=== PATIENT | female | born 1995 | race Caucasian/White ===

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

== ENCOUNTER 2017-09-02 13:38 | Inpatient (IN) | payer OTHER ==
[2017-09-02 14:59] VITALS: BMI 21.5
--- NOTE | 2017-09-02 17:21 | HP ---
COWS - Scale Resting Pulse: 2= ID [id number] Sweatin= Chills/Flushing Restless Observation: 3= Extraneous Movement Pupil Size: 0= Normal to Room Light Bone or Joint Aches: 2= Severe Diffuse Aches Runny Nose/ Eye Tearin= Nasal Congestion GI Upset > 30mins: 1= Stomach Cramp Tremor Observation: 2= Slight Tremor Visible Yawning Observation: 0= None Anxiety or Irritability: 2=Irritable/Anxious Goose Flesh Skin: 0=Smooth Skin COWS Score: 14 Admission [facility] - HPI Chief Complaint: withdrawal sx Allergies/Adverse Reactions: Allergies Allergy/AdvReac Type Severity Reaction Status Date / Time No Known Allergies Allergy Unverified 09/02/17 16:19 History of Present Illness: 21 years old female with long history of opiate nicotine dependence has depression is admitted to detox Exam Limitations: No Limitations - Ebola screening Have you traveled outside of the country in the last 21 days: No (N) Have you had contact with anyone from an Ebola affected area: No Have you been sick,other than usual withdrawal symptoms: No Do you have a fever: No - Review of Systems Constitutional: Changes in sleep, Weight Stable EENT: reports: Blurred Vision (eye glasses) Respiratory: reports: No Symptoms reported Cardiac: reports: No Symptoms Reported GI: reports: Poor Fluid Intake, Abdominal cramping : reports: No Symptoms Reported Musculoskeletal: reports: Back Pain, Joint Pain, Muscle Pain, Neck Pain Integumentary: reports: Change in Color (both hands iv opiate) Neuro: reports: Tremors Endocrine: reports: No Symptoms Reported Hematology: reports: No Symptoms Reported Psychiatric: reports: Judgement Intact, Orientated x3, Anxious, Depressed Other Systems: Reviewed and Negative Patient History - Patient Medical History Hx Anemia: No Hx Asthma: No Hx Chronic Obstructive Pulmonary Disease (COPD): No Hx Cancer: No Hx Cardiac Disorders: No Hx Congestive Heart Failure: No Hx Hypertension: No Hx Hypercholesterolemia: No Hx Pacemaker: No HX Cerebrovascular Accident: No Hx Seizures: No Hx Dementia: No Hx Diabetes: No Hx Gastrointestinal Disorders: No Hx Liver Disease: No Hx Genitourinary Disorders: No Hx Sexually Transmitted Disorders: No Hx Renal Disease (ESRD): No Hx Thyroid Disease: No Hx Human Immunodeficiency Virus (HIV): No Hx Hepatitis C: No Hx Depression: Yes Hx Suicide Attempt: No Hx Bipolar Disorder: No Hx Schizophrenia: No - Patient Surgical History Past Surgical History: No - PPD History Previous Implant?: Yes Documented Results: Negative w/o proof Implanted On Prior [facility] Admission?: No PPD to be Administered?: Yes - Reproductive History Patient is a Female of Child Bearing Age (11 -55 yrs old): Yes Last Menstrual Period: 08/13/17 Patient : No - Smoking Cessation Smoking history: Current every day smoker Have you smoked in the past 12 months: Yes Aproximately how many cigarettes per day: 20 Cigars Per Day: 0 Hx Chewing Tobacco Use: No Initiated information on smoking cessation: Yes 'Breaking Loose' booklet given: 09/02/17 - Substance & Tx. History Hx Alcohol Use: No Hx Substance Use: Yes Substance Use Type: Marijuana, Opiates Hx Substance Use Treatment: Yes (01/2017 [facility]) - Substances Abused Heroin Route: Injection Frequency: Daily Amount used: 30 bags Age of first use: 20 Date of Last Use: 09/01/17 Marijuana/Hashish Route: Smoking Frequency: 1-2 times per week Amount used: 1-2 grams Age of first use: 16 Date of Last Use: 08/26/17 Family Disease History - Family Disease History Family History: Unremarkable Admission Physical Exam BHS - Vital Signs Vital Signs: Vital Signs - 24 hr 09/02/17 14:57 Temperature 96.2 F L Pulse Rate 102 H Respiratory 19 Rate Blood Pressure 119/77 - Physical General Appearance: Yes: Appropriately Dressed, Mild Distress, Thin, Tremorous, Irritable, Sweating, Anxious HEENTM: Yes: Hearing grossly Normal, Normal ENT Inspection, Normocephalic, Normal Voice Respiratory: Yes: Chest Non-Tender, Lungs Clear, Normal Breath Sounds, No Respiratory Distress, No Accessory Muscle Use Neck: Yes: Supple, Trachea in good position Breast: Yes: Breasts Symetrical Cardiology: Yes: Regular Rhythm, S1, S2, Tachycardia Abdominal: Yes: Normal Bowel Sounds, Non Tender, Soft Genitourinary: Yes: Within Normal Limits Back: Yes: Normal Inspection Musculoskeletal: Yes: full range of Motion, Gait Steady, Back pain, Muscle Pain Extremities: Yes: Normal Range of Motion, Non-Tender, Tremors, Other (both hands iv opiate) Neurological: Yes: Fully Oriented, Alert, Motor Strength 5/5, Normal Response, Depressed Affect Integumentary: Yes: Warm, Track Fowler Lymphatic: Yes: Within Normal Limits - Diagnostic (1) Opioid dependence with withdrawal Current Visit: Yes Status: Acute (2) Nicotine dependence Current Visit: Yes Status: Acute Qualifiers: Nicotine product type: cigarettes Substance use status: in withdrawal Qualified Code(s): F17.213 - Nicotine dependence, cigarettes, with withdrawal (3) Depression (emotion) Current Visit: Yes Status: Suspected Qualifiers: Depression Type: dysthymia Qualified Code(s): F34.1 - Dysthymic disorder Cleared for Admission [facility] - Detox or Rehab [facility] Level of Care: Medically Managed Detox Regimen/Protocol: Methadone [facility] Breath Alcohol Content Breath Alcohol Content: 0 Urine Pregancy Test - Result Urine Test Results: Negative- NO Line Present Urine Drug Screen - Results Drug Screen Negative: No Urine Drug Screen Results: THC-Marijuana, OPI-Opiates
[2017-09-02] MEDS ORDERED: MAGNESIUM CITRATE 300 ML BOTTLE PO PRN (17:24)
[2017-09-02] MEDS ORDERED: MAG HYDROX/AL HYDROX/SIMETH 30 ML UNIT-DOSE CUP PO PRN (17:24)
[2017-09-02] MEDS ORDERED: MAGNESIUM HYDROX 2400MG/30ML ORAL SUSPENSION 30 ML CUP PO PRN (17:24)
[2017-09-02] MEDS ORDERED: P-EPHED 60MG/TRIPROLIDI 2.5MG TABLET PO PRN (17:24)
[2017-09-02] MEDS ORDERED: guaiFENesin/D-METHORPHAN HB 10 ML UNIT-DOSE CUPS PO PRN (17:24)
[2017-09-02] MEDS ORDERED: MENTHOL/PHENOL 1 EACH UD MM PRN (17:24)
[2017-09-02] MEDS ORDERED: LOPERAMIDE HCL 2 MG CAPSULE PO PRN (17:24)
[2017-09-02] MEDS ORDERED: IBUPROFEN 400 MG TABLET (FP) PO PRN (17:24)
[2017-09-02] MEDS ORDERED: ACETAMINOPHEN 325 MG TABLET (FP) PO PRN (17:24)
[2017-09-02] MEDS ORDERED: METHADONE HCL 10 MG TABLET (FOR DETOX USE ONLY) PO ONE ×2 (18:15→23:00)
[2017-09-02] MEDS: diazePAM 5 MG TABLET PO PRN (19:23)
[2017-09-02] MEDS: THIAMINE HCL 100 MG TABLET (FP) PO SCH (22:43)
[2017-09-03 01:28] LABS: URINE APPEARANCE CLOUDY; URINE BILIRUBIN NEGATIVE (NEGATIVE); URINE BLOOD NEGATIVE (NEGATIVE); URINE COLOR YELLOW; URINE GLUCOSE (UA) NEGATIVE (NEGATIVE); URINE KETONE NEGATIVE (NEGATIVE); URINE NITRITE NEGATIVE (NEGATIVE); URINE PROTEIN NEGATIVE (NEGATIVE); URINE UROBILINOGEN NEGATIVE mg/dL (0.2-1.0)
[2017-09-03 09:35] LABS: URINE LEUK ESTERASE 3+ (NEGATIVE)
[2017-09-03 09:46] LABS: MCH 25.7 pg (25.7-33.7); MCHC 32.3 g/dl (32.0-36.0); MEAN CELL VOLUME 79.7 fl (80-96); MEAN PLT VOLUME 8.5 fl (7.5-11.1); PLATELET COUNT 360 K/MM3 (134-434); RDW 16.5 % (11.6-15.6); WHITE BLOOD COUNT 5.8 K/mm3 (4.0-10.0)
--- NOTE | 2017-09-03 09:53 | PN ---
BHS COWS - Scale Resting Pulse: 0= CT 80 or Below Sweatin=Flushed/Facial Moisture Restless Observation: 1= Difficult to Sit Still Pupil Size: 0= Normal to Room Light Bone or Joint Aches: 2= Severe Diffuse Aches Runny Nose/ Eye Tearin= Runny Nose/Eyes GI Upset > 30mins: 0= None Tremor Observation of Outstretched Hands: 2= Slight Tremor Visible Yawning Observation: 2= >3x During Session Anxiety or Irritability: 2=Irritable/Anxious Goose Flesh Skin: 3=Piloerection COWS Score: 16 BHS Progress Note (SOAP) Subjective: chills sweats restless agitation interrupted sleep Objective: 09/03/17 09:52 Vital Signs Temperature 96.1 F L 09/03/17 06:41 Pulse Rate 80 09/03/17 06:41 Respiratory Rate 18 09/03/17 06:41 Blood Pressure 111/68 09/03/17 06:41 O2 Sat by Pulse Oximetry (%) Laboratory Tests 09/02/17 22:35 Urine Color Yellow Urine Appearance Cloudy Urine pH 7.0 Ur Specific [place] 1.005 Urine Protein Negative Urine Glucose (UA) Negative Urine Ketones Negative Urine Blood Negative Urine Nitrite Negative Urine Bilirubin Negative Urine Urobilinogen Negative Ur Leukocyte Esterase 3+ H labs pending aaox3 ambulating no acute distress Assessment: 09/03/17 09:52 withdrawal sx Plan: continue detox increase fluids f/u pending labs
[2017-09-03] MEDS ORDERED: METHADONE HCL 10 MG TABLET (FOR DETOX USE ONLY) PO ONE (10:00)
[2017-09-03] MEDS: NICOTINE 21 MG/24 HOURS TOPICAL PATCH TD SCH (10:44)
[2017-09-03] MEDS: PRENATAL VITAMINS W/ FOLIC ACID TABLET (FP) PO SCH (10:45)
[2017-09-03 10:47] LABS: ALBUMIN 3.5 g/dl (3.4-5.0); ALK PHOS 86 U/L (45-117); ANION GAP 8 (8-16); BILIRUBIN,TOTAL 0.5 mg/dL (0.2-1.0); CALCIUM 9.3 mg/dL (8.5-10.1); CO2 27 mmol/L (21-32); CREATININE 0.7 mg/dL (0.55-1.02); GLUCOSE,RANDOM 80 mg/dL (74-106); SGOT/AST 12 U/L (15-37); SGPT/ALT 22 U/L (12-78); TOT PROT 7.3 g/dl (6.4-8.2)
[2017-09-03] MEDS: NICOTINE POLACRILEX 4 MG GUM BC PRN ×2 (12:52→18:00)
--- NOTE | 2017-09-03 13:11 | EKG ---
Test Reason : Blood Pressure : / mmHG Vent. Rate : 096 BPM Atrial Rate : 096 BPM P-R Int : 132 ms QRS Dur : 084 ms QT Int : 332 ms P-R-T Axes : 051 086 053 degrees QTc Int : 419 ms NORMAL SINUS RHYTHM PROMINENT R WAVES IN V1-V2 V1, MAY BE RELATED TO [place] OR POSITIONAL FACTORS, CANNOT EXCLUDE RIGHT VENTRICULAR PROMINENCE OR TRUE POSTERIOR WALL NM INDETERMINATE AGE WHEN COMPARED WITH ECG OF 13-DEC-2016 21:11, CHANGES MENTIONED ABOVE SUGGEST REPEAT EKG Confirmed by CHANTAL SIMEON MD ([id number]) on 09/03/2017 1:11:00 PM Referred By: Familia Oden Confirmed By:CHANTAL SIMEON MD
[2017-09-03 14:04] LABS: URINE RBC 0-2 /hpf (0-3)
[2017-09-03 14:05] LABS: URINE BACTERIA MANY /hpf (NEGATIVE)
--- NOTE | 2017-09-03 18:43 | CONSULT ---
[facility] Psychiatric Consult - Data Date of interview: 09/03/17 Admission source: [facility] Identifying data: First admission to [facility] for this 21 y/o female seeking detox treatment on for heroin and marihuana dependence.Patient is single without chidren,domiciled and employed. Substance Abuse History: Confirmed by patient in this interview. Smoking history: Current every day smoker. Have you smoked in the past 12 months: Yes. Aproximately how many cigarettes per day: 20. Cigars Per Day: 0. Hx Chewing Tobacco Use: No. Initiated information on smoking cessation: Yes. 'Breaking Loose' booklet given: 09/02/17. - Substance & Tx. History. Hx Alcohol Use: No. Hx Substance Use: Yes. Substance Use Type: Marijuana, Opiates. Hx Substance Use Treatment: Yes (01/2017 [facility]). - Substances Abused. Heroin. Route: Injection. Frequency: Daily. Amount used: 30 bags. Age of first use: 20. Date of Last Use: 09/01/17. Marijuana/Hashish. Route: Smoking. Frequency: 1-2 times per week. Amount used: 1-2 grams. Age of first use: 16. Date of Last Use: 08/26/17 Medical History: Patient endorses good general health. Psychiatric History: Patient denies. Physical/Sexual Abuse/Trauma History: No reported history of abuse. Additional Comment: Urine Drug Screen Results: THC-Marijuana, OPI-Opiates.Noted. Mental Status Exam - Mental Status Exam Alert and Oriented to: Time, Place, Person Cognitive Function: Good Patient Appearance: Well Groomed Mood: Hopeful, Euthymic Affect: Appropriate, Normal Range Patient Behavior: Fatigued, Appropriate, Cooperative Speech Pattern: Clear Voice Loudness: Normal Thought Process: Intact, Goal Oriented Thought Disorder: Not Present Hallucinations: Denies Suicidal Ideation: Denies Homicidal Ideation: Denies Insight/Judgement: Poor Sleep: Poorly Appetite: Good Muscle strength/Tone: Normal Gait/Station: Normal Psychiatric Findings - Problem List ([place] 1, 2,3) (1) Opioid dependence with withdrawal Current Visit: Yes Status: Acute (2) Cannabis abuse Current Visit: Yes Status: Acute (3) Nicotine dependence Current Visit: Yes Status: Acute Qualifiers: Nicotine product type: cigarettes Substance use status: in withdrawal Qualified Code(s): F17.213 - Nicotine dependence, cigarettes, with withdrawal (4) Insomnia Current Visit: Yes Status: Acute - Initial Treatment Plan Initial Treatment Plan: Psychoeducation.Detoxification.Insomnia is addressed with benadryl 50 mg po hs prn.Side effects/benefits are discussed with patient.She agrees with this careplan.Observation.
[2017-09-03] MEDS: THIAMINE HCL 100 MG TABLET (FP) PO SCH (22:37)
[2017-09-03] MEDS: diazePAM 5 MG TABLET PO PRN (22:37)
--- NOTE | 2017-09-04 08:43 | PN ---
S COWS - Scale Resting Pulse: 0= ND 80 or Below Sweatin= No chills or Flushing Restless Observation: 0= Sits Still Pupil Size: 0= Normal to Room Light Bone or Joint Aches: 0= None Runny Nose/ Eye Tearin= None GI Upset > 30mins: 2= Nausea/Diarrhea Tremor Observation of Outstretched Hands: 0= None Yawning Observation: 0= None Anxiety or Irritability: 1=Feels Anxious/Irritable Goose Flesh Skin: 0=Smooth Skin COWS Score: 3 S Progress Note (SOAP) Subjective: NAUSEA, SWEATS, INAXIETY, INTERRUPTED SLEEP, BUT MUCH IMPORVED WISHES TO BE DISCHARGED TOMORROW FOR THANSGIVING Objective: 09/04/17 08:42 Vital Signs - 24 hr 09/03/17 09/03/17 09/03/17 10:06 14:17 18:59 Temperature 97.9 F 97.7 F 98.1 F Pulse Rate 90 93 H 79 Respiratory 18 16 18 Rate Blood Pressure 127/56 128/64 101/54 09/03/17 09/04/17 09/04/17 22:00 00:30 03:30 Temperature 98.2 F Pulse Rate 75 Respiratory 18 18 18 Rate Blood Pressure 108/62 09/04/17 06:38 Temperature 98.1 F Pulse Rate 62 Respiratory 16 Rate Blood Pressure 94/53 Laboratory Tests 09/02/17 09/02/17 09/03/17 07:00 22:35 07:00 WBC 5.8 RBC 4.72 Hgb 12.1 Hct 37.6 MCV 79.7 L MCH 25.7 D MCHC 32.3 RDW 16.5 H D Plt Count 360 MPV 8.5 Sodium Potassium Chloride Carbon Dioxide Anion Gap BUN Creatinine Creat Clearance w eGFR Random Glucose Calcium Total Bilirubin AST ALT Alkaline Phosphatase Total Protein Albumin Urine Color Yellow Urine Appearance Cloudy Urine pH 7.0 Ur Specific [place] 1.005 Urine Protein Negative Urine Glucose (UA) Negative Urine Ketones Negative Urine Blood Negative Urine Nitrite Negative Urine Bilirubin Negative Urine Urobilinogen Negative Ur Leukocyte Esterase 3+ H Urine RBC 0-2 Urine WBC 10-20 Ur Epithelial Cells Few Urine Bacteria Many RPR Titer Hepatitis C Antibody <0.1 09/03/17 09/03/17 07:00 07:00 WBC RBC Hgb Hct MCV MCH MCHC RDW Plt Count MPV Sodium 139 Potassium 4.4 Chloride 104 Carbon Dioxide 27 Anion Gap 8 BUN 8 D Creatinine 0.7 Creat Clearance w eGFR > 60 Random Glucose 80 D Calcium 9.3 Total Bilirubin 0.5 D AST 12 L ALT 22 D Alkaline Phosphatase 86 Total Protein 7.3 Albumin 3.5 Urine Color Urine Appearance Urine pH Ur Specific [place] Urine Protein Urine Glucose (UA) Urine Ketones Urine Blood Urine Nitrite Urine Bilirubin Urine Urobilinogen Ur Leukocyte Esterase Urine RBC Urine WBC Ur Epithelial Cells Urine Bacteria RPR Titer Nonreactive Hepatitis C Antibody Assessment: 09/04/17 08:42 MILD WITHDRAWAL, MEDICALLY STABLE Plan: CONT DETOX, WILL ACCELERATE SCHEDULE FOR D/C IN am, FLUIDS,COUNSELED RE NEED FOR mat WITH [facility] AT [place] WHERE SHE WILL BE FOLLOWING UP.
[2017-09-04] MEDS ORDERED: METHADONE HCL 10 MG TABLET (FOR DETOX USE ONLY) PO ONE (10:00)
[2017-09-04] MEDS ORDERED: METHADONE HCL 5 MG TABLET (FOR DETOX USE ONLY) PO ONE (10:00)
[2017-09-04] MEDS: PRENATAL VITAMINS W/ FOLIC ACID TABLET (FP) PO SCH (10:38)
[2017-09-04] MEDS: NICOTINE 21 MG/24 HOURS TOPICAL PATCH TD SCH (10:39)
[2017-09-04] MEDS: diazePAM 5 MG TABLET PO PRN (13:00)
[2017-09-04] MEDS: NICOTINE POLACRILEX 4 MG GUM BC PRN (13:01)
[2017-09-04] MEDS: THIAMINE HCL 100 MG TABLET (FP) PO SCH (22:59)
[2017-09-05] MEDS ORDERED: METHADONE HCL 5 MG TABLET (FOR DETOX USE ONLY) PO ONE (06:00)
--- NOTE | 2017-09-05 08:49 | DS ---
[facility] Detox Discharge Summary Admission Date: 09/02/17 Discharge Date: 09/05/17 - History Present History: Cannabis Dependence, Opioid Dependence - Physical Exam Results Vital Signs: Vital Signs Temperature 97.7 F 09/05/17 06:00 Pulse Rate 68 09/05/17 06:00 Respiratory Rate 18 09/05/17 06:00 Blood Pressure 114/56 09/05/17 06:00 O2 Sat by Pulse Oximetry (%) - Treatment Hospital Course: Detox Protocol Followed, Detoxed Safely, Responded well, Discharged Condition Good, Rehab Referral Accepted - Medication Discharge Medications: Ambulatory Orders NK [No Known Home Medication] 12/13/16 - Diagnosis (1) Nicotine dependence Current Visit: Yes Status: Chronic Qualifiers: Nicotine product type: cigarettes Substance use status: uncomplicated Qualified Code(s): F17.210 - Nicotine dependence, cigarettes, uncomplicated (2) Opioid dependence with withdrawal Current Visit: Yes Status: Chronic - AMA Did Patient Leave Against Medical Advice: No (going home pt is being p/u by dad)
[2017-09-05 10:00] VITALS: BP 114/58; PULSE 74; TEMP 97.9
[2017-09-05] MEDS ORDERED: METHADONE HCL 10 MG TABLET (FOR DETOX USE ONLY) PO ONE (10:00)
[2017-09-06] MEDS ORDERED: METHADONE HCL 5 MG TABLET (FOR DETOX USE ONLY) PO ONE (06:00)
== END 2017-09-05 10:07 | disposition home or self-care (01) | DRG 773 ==
LOC: YASAS 13:38 → Y6N 16:50
PROVIDERS: ADMIT Internal Medicine; ATTEND Internal Medicine
PROC: HZ2ZZZZ Detoxification Services for Substance Abuse Treatment (ICD-10-PCS; principal; 2017-09-02)
DX: F11.23 Opioid dependence with withdrawal (principal); F12.10 Cannabis abuse, uncomplicated; F17.210 Nicotine dependence, cigarettes, uncomplicated; F34.1 Dysthymic disorder; G47.00 Insomnia, unspecified
CPT/HCPCS: 36415; 80053; 81003; 81015; 85027; 86593; 86803; 93005; 93010

== ENCOUNTER 2019-01-21 13:49 | Inpatient (IN) | payer OTHER ==
[2019-01-21 16:30] VITALS: BMI 19.9
--- NOTE | 2019-01-21 17:06 | HP ---
COWS - Scale Resting Pulse: 1= [place] 81-100 Sweatin= Chills/Flushing Restless Observation: 1= Difficult to Sit Still Pupil Size: 1= Pupils >than Normal Bone or Joint Aches: 1= Mild Discomfort Runny Nose/ Eye Tearin= Runny Nose/Eyes GI Upset > 30mins: 2= Nausea/Diarrhea Tremor Observation: 2= Slight Tremor Visible Yawning Observation: 1= 1-2x During Session Anxiety or Irritability: 1=Feels Anxious/Irritable Goose Flesh Skin: 0=Smooth Skin COWS Score: 13 CIWA Score - Admission Criteria OASAS Guidelines: Admission for Medically Managed Detox: Requires at least one of the followin. CIWA greater than 12 2. Seizures within the past 24 hours 3. Delirium tremens within the past 24 hours 4. Hallucinations within the past 24 hours 5. Acute intervention needed for co occurring medical disorder 6. Acute intervention needed for co occurring psychiatric disorder 7. Severe withdrawal that cannot be handled at a lower level of care (continued vomiting, continued diarrhea, abnormal vital signs) requiring intravenous medication and/or fluids 8. Admission ROS [facility] Chief Complaint: here for heroin and xanax 23 yo with 3 year h/o heroin use- after she got started with a boyfriend. Was here 2 years ago for detox- did well for 2 months and then relapsed to using IV heroin. Says she was kicked out of her mom's house b/c of drug use and was fired from her job for being late. Says she now motivated to stop using heroin. Heroin- 1 bundle a day: IV, last use 7 am- about 10 hours ago Xanax- buys 4 mg/day utox- pos cocaine and heroin and BZO Pt wishes to leave on 01/24 in 3 days to attend her mother's : given a lower dose methadone detox protocol- pt agreeable to this- may need to give more methadone- pt using 10 bags of methadone a day Pt agrees to start at our methadone program [facility] Allergies/Adverse Reactions: Allergies Allergy/AdvReac Type Severity Reaction Status Date / Time No Known Allergies Allergy Unverified 01/21/19 16:22 - Ebola screening Have you traveled outside of the country in the last 21 days: No (N) Have you had contact with anyone from an Ebola affected area: No Do you have a fever: No Patient History - Patient Medical History Hx Anemia: No Hx Asthma: No Hx Chronic Obstructive Pulmonary Disease (COPD): No Hx Cancer: No Hx Cardiac Disorders: No Hx Congestive Heart Failure: No Hx Hypertension: No Hx Hypercholesterolemia: No Hx Pacemaker: No HX Cerebrovascular Accident: No Hx Seizures: No Hx Dementia: No Hx Diabetes: No Hx Gastrointestinal Disorders: No Hx Liver Disease: No Hx Genitourinary Disorders: No Hx Sexually Transmitted Disorders: No Hx Renal Disease (ESRD): No Hx Thyroid Disease: No Hx Human Immunodeficiency Virus (HIV): No Hx Hepatitis C: No Hx Depression: Yes Hx Suicide Attempt: No Hx Bipolar Disorder: No Hx Schizophrenia: No - Patient Surgical History Past Surgical History: No - PPD History Date: 09/04/17 - Reproductive History Last Menstrual Period: 08/13/17 - Smoking Cessation Smoking history: Current every day smoker Have you smoked in the past 12 months: Yes Aproximately how many cigarettes per day: 20 Cigars Per Day: 0 Hx Chewing Tobacco Use: No Initiated information on smoking cessation: Yes 'Breaking Loose' booklet given: 01/21/19 - Substance & Tx. History Hx Alcohol Use: No Hx Substance Use: Yes Substance Use Type: Heroin, Opiates, Tranquilizers - Substances abused Heroin Substance route: Injection Frequency: Daily Amount used: 1 bundle Age of first use: 20 Date of last use: 01/21/19 Alprazolam (Xanax) Substance route: Oral Frequency: 1-2 times per week Amount used: 2 or 3 of 2 mg. Age of first use: 20 Date of last use: 01/20/19 Family Disease History - Family Disease History Family Disease History: Other: Father (smokes crack) Admission Physical Exam BHS - Vital Signs Vital Signs: Vital Signs - 24 hr 01/21/19 16:24 Temperature 97.6 F Pulse Rate 109 H Respiratory 14 Rate Blood Pressure 102/72 - Physical General Appearance: Yes: Within Normal Limits HEENTM: Yes: Within Normal Limits Respiratory: Yes: Within Normal Limits Neck: Yes: Within Normal Limits Cardiology: Yes: Within Normal Limits Abdominal: Yes: Within Normal Limits Genitourinary: Yes: Within Normal Limits Back: Yes: Within Normal Limits Musculoskeletal: Yes: Within Normal Limits Extremities: Yes: Within Normal Limits Neurological: Yes: Within Normal Limits Integumentary: Yes: Within Normal Limits Lymphatic: Yes: Within Normal Limits - Diagnostic (1) Cannabis abuse Current Visit: No Status: Acute (2) Heroin abuse Current Visit: No Status: Acute (3) Nicotine dependence Current Visit: No Status: Chronic Qualifiers: Nicotine product type: cigarettes Substance use status: uncomplicated Qualified Code(s): F17.210 - Nicotine dependence, cigarettes, uncomplicated (4) Opioid dependence with withdrawal Current Visit: No Status: Chronic Breathalyzer - Breathalyzer Breathalyzer: 0 POC Urine test - Test device test lot number: [id number] Expiration date: 06/13/20 - Control test control: Yes - Result Urine Test Results: Negative - NO line present Urine Drug Screen - Test Device Lot number: [id number] Expiration date: 01/11/20 - Control Is test valid?: Yes - Results Drug screen NEGATIVE: No Urine drug screen results: MET-Methamphetamine, AMP-Amphetamines, BAR- Barbiturates, MDMA-Ecstasy, BUP-Suboxone Inpatient Rehab Admission - Rehab Decision to Admit Inpatient rehab admission?: No
[2019-01-21] MEDS ORDERED: MAGNESIUM HYDROX 2400MG/30ML ORAL SUSPENSION 30 ML CUP PO PRN (17:11)
[2019-01-21] MEDS ORDERED: ONDANSETRON *ODT* 4 MG TABLET SL PRN (17:11)
[2019-01-21] MEDS ORDERED: BISMUTH SUBSALICYLATE 524 MG/30 ML UD PO PRN (17:11)
[2019-01-21] MEDS ORDERED: ACETAMINOPHEN 325 MG TABLET (FP) PO PRN ×2 (17:11)
[2019-01-21] MEDS ORDERED: MAGNESIUM CITRATE 300 ML BOTTLE PO PRN (17:11)
[2019-01-21] MEDS ORDERED: MELATONIN 5 MG TABLETS PO PRN (17:11)
[2019-01-21] MEDS ORDERED: hydrOXYzine PAMOATE 25 MG CAPSULE (FP) PO PRN (17:11)
[2019-01-21] MEDS ORDERED: METHOCARBAMOL 500 MG TABLET PO PRN (17:11)
[2019-01-21] MEDS ORDERED: MAG HYDROX/AL HYDROX/SIMETH 30 ML UNIT-DOSE CUP PO PRN (17:11)
[2019-01-21] MEDS ORDERED: IBUPROFEN 400 MG TABLET (FP) PO PRN (17:11)
[2019-01-21] MEDS ORDERED: MENTHOL/PHENOL 1 EACH UD MM PRN (17:11)
[2019-01-21] MEDS ORDERED: cloNIDine HCL 0.1 MG TABLET PO PRN (17:13)
[2019-01-21] MEDS: THIAMINE HCL 100 MG TABLET (FP) PO SCH (22:27)
[2019-01-21] MEDS: clonazePAM 0.5 MG TABLET PO PRN (22:29)
[2019-01-21] MEDS ORDERED: METHADONE HCL 10 MG TABLET (FOR DETOX USE ONLY) PO ONE (23:00)
[2019-01-22] MEDS ORDERED: METHADONE HCL 5 MG TABLET (FOR DETOX USE ONLY) PO ONE (10:00)
[2019-01-22] MEDS: NICOTINE 21 MG/24 HOURS TOPICAL PATCH TD SCH (10:07)
[2019-01-22] MEDS: PRENATAL VITAMINS W/ FOLIC ACID TABLET (FP) PO SCH (10:07)
[2019-01-22 10:15] LABS: HEMATOCRIT 35.8 % (32.4-45.2); HEMOGLOBIN 11.9 GM/dL (10.7-15.3); MCH 26.9 pg (25.7-33.7); MCHC 33.1 g/dl (32.0-36.0); MEAN CELL VOLUME 81.3 fl (80-96); MEAN PLT VOLUME 8.6 fl (7.5-11.1); PLATELET COUNT 292 K/MM3 (134-434); RBC 4.41 M/mm3 (3.60-5.2); RDW 15.6 % (11.6-15.6); WHITE BLOOD COUNT 5.7 K/mm3 (4.0-10.0)
[2019-01-22 10:25] LABS: ALBUMIN 3.4 g/dl (3.4-5.0); ALK PHOS 81 U/L (45-117); ANION GAP 3 MMOL/L (8-16); BILIRUBIN,TOTAL 0.2 mg/dL (0.2-1); BLOOD UREA NITROGEN 15 mg/dL (7-18); CHLORIDE 107 mmol/L (98-107); CO2 29 mmol/L (21-32); CREATININE 0.7 mg/dL (0.55-1.3); GLUCOSE,RANDOM 81 mg/dL (74-106); POTASSIUM 4.3 mmol/L (3.5-5.1); SGOT/AST 11 U/L (15-37); SGPT/ALT 14 U/L (13-61); SODIUM 139 mmol/L (136-145); TOT PROT 7.1 g/dl (6.4-8.2)
[2019-01-22] MEDS: clonazePAM 0.5 MG TABLET PO PRN (22:15)
[2019-01-22] MEDS: THIAMINE HCL 100 MG TABLET (FP) PO SCH (22:15)
[2019-01-23] MEDS ORDERED: METHADONE HCL 10 MG TABLET (FOR DETOX USE ONLY) PO ONE (10:00)
[2019-01-23] MEDS: PRENATAL VITAMINS W/ FOLIC ACID TABLET (FP) PO SCH (10:15)
[2019-01-23] MEDS: NICOTINE 21 MG/24 HOURS TOPICAL PATCH TD SCH (10:16)
--- NOTE | 2019-01-23 13:52 | PN ---
BHS COWS - Scale Resting Pulse: 0= [place] 80 or Below Sweatin=Flushed/Facial Moisture Restless Observation: 1= Difficult to Sit Still Pupil Size: 0= Normal to Room Light Bone or Joint Aches: 1= Mild Discomfort Runny Nose/ Eye Tearin= Runny Nose/Eyes GI Upset > 30mins: 0= None Tremor Observation of Outstretched Hands: 2= Slight Tremor Visible Yawning Observation: 2= >3x During Session Anxiety or Irritability: 1=Feels Anxious/Irritable Goose Flesh Skin: 0=Smooth Skin COWS Score: 11 BHS Progress Note (SOAP) Subjective: sweats chills shakes interrupted sleep body aches Objective: 01/23/19 13:51 Vital Signs Temperature 98.9 F 01/23/19 09:25 Pulse Rate 69 01/23/19 09:25 Respiratory Rate 18 01/23/19 09:25 Blood Pressure 144/59 L 01/23/19 09:25 O2 Sat by Pulse Oximetry (%) Laboratory Tests 01/22/19 01/22/19 01/22/19 07:00 07:00 07:00 WBC 5.7 RBC 4.41 Hgb 11.9 Hct 35.8 MCV 81.3 MCH 26.9 MCHC 33.1 RDW 15.6 Plt Count 292 MPV 8.6 Sodium 139 Potassium 4.3 Chloride 107 Carbon Dioxide 29 Anion Gap 3 L BUN 15 Creatinine 0.7 Creat Clearance w eGFR 105.63 Random Glucose 81 Calcium 9.0 Total Bilirubin 0.2 AST 11 L ALT 14 Alkaline Phosphatase 81 Total Protein 7.1 Albumin 3.4 RPR Titer Nonreactive HIV 1&2 Antibody Screen HIV P24 Antigen 01/22/19 07:00 WBC RBC Hgb Hct MCV MCH MCHC RDW Plt Count MPV Sodium Potassium Chloride Carbon Dioxide Anion Gap BUN Creatinine Creat Clearance w eGFR Random Glucose Calcium Total Bilirubin AST ALT Alkaline Phosphatase Total Protein Albumin RPR Titer HIV 1&2 Antibody Screen Negative HIV P24 Antigen Negative aaox3 ambulating no acute distress Assessment: 01/23/19 13:51 withdrawal sx Plan: continue detox increase fluids
[2019-01-23 14:31] VITALS: BP 116/71; PULSE 94; TEMP 98.1
--- NOTE | 2019-01-23 17:09 | DS ---
[facility] Detox Discharge Summary Admission Date: 01/21/19 Discharge Date: 01/23/19 - History Present History: Opioid Dependence - Physical Exam Results Vital Signs: Vital Signs Temperature 98.1 F 01/23/19 14:31 Pulse Rate 94 H 01/23/19 14:31 Respiratory Rate 18 01/23/19 14:31 Blood Pressure 116/71 01/23/19 14:31 O2 Sat by Pulse Oximetry (%) - Treatment Hospital Course: Detoxed Safely, Responded well Patient has Accepted a Rehab Referral to: planning to go to Methadone clinic - Medication Discharge Medications: Ambulatory Orders NK [No Known Home Medication] 12/13/16 - Diagnosis (1) Nicotine dependence Current Visit: No Status: Chronic Qualifiers: Nicotine product type: cigarettes Substance use status: uncomplicated Qualified Code(s): F17.210 - Nicotine dependence, cigarettes, uncomplicated (2) Opioid dependence with withdrawal Current Visit: No Status: Chronic - AMA Did Patient Leave Against Medical Advice: Yes
[2019-01-24] MEDS ORDERED: METHADONE HCL 5 MG TABLET (FOR DETOX USE ONLY) PO ONE (06:00)
== END 2019-01-23 17:48 | disposition left against medical advice (07) | DRG 770 ==
LOC: YASAS 13:49 → Y6N 17:49
PROVIDERS: ADMIT Surgery; ATTEND Surgery
PROC: HZ2ZZZZ Detoxification Services for Substance Abuse Treatment (ICD-10-PCS; principal; 2019-01-21)
DX: F11.23 Opioid dependence with withdrawal (principal); F12.10 Cannabis abuse, uncomplicated; F17.210 Nicotine dependence, cigarettes, uncomplicated
CPT/HCPCS: 36415; 80053; 85027; 86593; 87389; J0735

== ENCOUNTER 2019-05-19 12:27 | Inpatient (IN) | payer OTHER ==
[2019-05-19 15:48] VITALS: BMI 21.9
--- NOTE | 2019-05-19 17:14 | HP ---
"COWS - Scale Resting Pulse: 0= [place] 80 or Below Sweatin=Flushed/Facial Moisture Restless Observation: 1= Difficult to Sit Still Pupil Size: 2= Moderately Dilated (Pupils = 4 mm) Bone or Joint Aches: 0= None Runny Nose/ Eye Tearin= Nasal Congestion GI Upset > 30mins: 0= None Tremor Observation: 4= Gross Tremor/Twitching Yawning Observation: 0= None Anxiety or Irritability: 0= None Goose Flesh Skin: 0=Smooth Skin COWS Score: 10 CIWA Score - Admission Criteria OASAS Guidelines: Admission for Medically Managed Detox: Requires at least one of the followin. CIWA greater than 12 2. Seizures within the past 24 hours 3. Delirium tremens within the past 24 hours 4. Hallucinations within the past 24 hours 5. Acute intervention needed for co occurring medical disorder 6. Acute intervention needed for co occurring psychiatric disorder 7. Severe withdrawal that cannot be handled at a lower level of care (continued vomiting, continued diarrhea, abnormal vital signs) requiring intravenous medication and/or fluids 8. Admission [facility] Chief Complaint: Heroin withdrawal Allergies/Adverse Reactions: Allergies Allergy/AdvReac Type Severity Reaction Status Date / Time No Known Allergies Allergy Unverified 05/19/19 15:44 History of Present Illness: 23 yo presents with opiate withdrawal and requesting detox. Left after 3 days during last detox in January 2019 Marijuana use began at age 16. Current use 1 blunt q 2 weeks Cocaine use began at age 20. Currently Smokes 1 gm Daily Nicotine use began at age 19. Currently Smokes 1/2 PPD. Xanax use since age 20. Currently uses 4-6 mg 1-2x/wk. Utox- +THC/JOAQUIN/FEN/MOP/OXY HCG: Neg Discussed the detox protocol and the benefits of extended detox. Discussed overdose risks. Heroin use since age 20. Current use has increased to 2 bundles a day since Jaymie: IVDU: States does not share needles or works. Last use about 10 am today. No Narcan kit. Has had 2 overdoses. Last overdose March 2019. Longest sobriety 2 months in 2017. Denies seizures/blackouts. Denies alcohol use. PMHx: Denies significant PMH MHHx: Denies depression. Denies thoughts of haring self or others. Search Terms: Erika Dhillon, 1995 Search Date: 05/19/2019 05:20:25 PM The Drug Utilization Report below displays all of the controlled substance prescriptions, if any, that your patient has filled in the last twelve months. The information displayed on this report is compiled from pharmacy submissions to the Department, and accurately reflects the information as submitted by the pharmacies. This report was requested by: July Nguyen | Reference #: [id number] There are no results for the search terms that you entered. Search Terms: Erika Dhillon, 1995 Search Date: 05/19/2019 05:21:24 PM States Searched: [place], [place], [place], [place], [place], [place], [place], [place], [place], [place] The Drug Utilization Report below displays the controlled substance prescriptions, if any, that were dispensed in the indicated state(s). The information displayed on this report is compiled from requests submitted to other states' PMPs, and accurately reflects the information as returned by them. Blank man indicate data not provided by other state. This report was requested by: July Nguyen | Reference #: [id number] Exam Limitations: No Limitations - Ebola screening Have you traveled outside of the country in the last 21 days: No Have you had contact with anyone from an Ebola affected area: No Have you been sick,other than usual withdrawal symptoms: No (Denies exposure to measles) Do you have a fever: No - Review of Systems Constitutional: Diaphoresis EENT: reports: Blurred Vision Respiratory: reports: No Symptoms reported Cardiac: reports: No Symptoms Reported GI: reports: No Symptoms Reported : reports: No Symptoms Reported Musculoskeletal: reports: No Symptoms Reported Integumentary: reports: No Symptoms Reported Neuro: reports: Tremors Endocrine: reports: No Symptoms Reported Hematology: reports: No Symptoms Reported Psychiatric: reports: Judgement Intact, Orientated x3 Patient History - Patient Medical History Hx Anemia: No Hx Asthma: No Hx Chronic Obstructive Pulmonary Disease (COPD): No Hx Cancer: No Hx Cardiac Disorders: No Hx Congestive Heart Failure: No Hx Hypertension: No Hx Hypercholesterolemia: No Hx Pacemaker: No HX Cerebrovascular Accident: No Hx Seizures: No Hx Dementia: No Hx Diabetes: No Hx Gastrointestinal Disorders: No Hx Liver Disease: No Hx Genitourinary Disorders: No Hx Sexually Transmitted Disorders: No Hx Renal Disease (ESRD): No Hx Thyroid Disease: No Hx Human Immunodeficiency Virus (HIV): No Hx Hepatitis C: No Hx Depression: Yes Hx Suicide Attempt: No Hx Bipolar Disorder: No Hx Schizophrenia: No - Patient Surgical History Past Surgical History: No Hx Neurologic Surgery: No Hx Cataract Extraction: No Hx Cardiac Surgery: No Hx Lung Surgery: No Hx Breast Surgery: No Hx Breast Biopsy: No Hx Abdominal Surgery: No Hx Appendectomy: No Hx Cholecystectomy: No Hx Genitourinary Surgery: No Hx Section: No Hx Orthopedic Surgery: No Anesthesia Reaction: No - PPD History Previous Implant?: Yes Documented Results: Negative w/proof Implanted On Prior R Admission?: Yes Date: 09/04/17 Results: NEGATIVE PPD to be Administered?: No - Reproductive History Patient is a Female of Child Bearing Age (11 -55 yrs old): Yes Last Menstrual Period: 08/14/18 (Unsure exact date) Patient : No - Smoking Cessation Smoking history: Current every day smoker Have you smoked in the past 12 months: Yes Aproximately how many cigarettes per day: 10 Cigars Per Day: 0 Hx Chewing Tobacco Use: No Initiated information on smoking cessation: Yes 'Breaking Loose' booklet given: 05/19/19 - Substance & Tx. History Hx Alcohol Use: No Hx Substance Use: Yes Substance Use Type: Cocaine, Heroin, Marijuana, Tranquilizers (benzo) Hx Substance Use Treatment: Yes (detox, [facility]) - Substances abused Heroin Substance route: Injection Frequency: Daily Amount used: 2 bundle Age of first use: 20 Date of last use: 05/19/19 Alprazolam (Xanax) Substance route: Oral Frequency: 1-2 times per week Amount used: 2 or 3 of 2 mg. Age of first use: 20 Date of last use: 05/12/19 Crack Substance route: Smoking Frequency: Daily Amount used: 1 gm Age of first use: 20 Date of last use: 05/19/19 Family Disease History - Family Disease History Family Disease History: Other: Father (smokes crack) Admission Physical Exam BHS - Vital Signs Vital Signs: Vital Signs - 24 hr 05/19/19 15:44 Temperature 96.9 F L Pulse Rate 80 Respiratory 17 Rate Blood Pressure 110/70 - Physical General Appearance: Yes: Mild Distress, Tremorous, Sweating (Increased facial mositure), Anxious HEENTM: Yes: EOMI, Hearing grossly Normal, Normocephalic, Normal Voice, ALBERTO ( Pupils = 4 mm), Pharynx Normal Respiratory: Yes: Lungs Clear, Normal Breath Sounds, No Respiratory Distress Neck: Yes: No masses,lesions,Nodules, Supple Breast: Yes: Breast Exam Deferred Cardiology: Yes: Regular Rhythm, Regular Rate, S1, S2 Abdominal: Yes: Non Tender, Flat, Soft, Increased Bowel Sounds Genitourinary: Yes: Within Normal Limits Back: Yes: Normal Inspection Musculoskeletal: Yes: full range of Motion, Gait Steady Extremities: Yes: Normal Capillary Refill, Tremors (Gross tremors) Neurological: Yes: critical systems technician II-XII NML intact, Fully Oriented, Alert Integumentary: Yes: Normal Color, Warm, Rash (reddish, dry, slivery rash (R) antecubital area.), Track Fowler (Old and new track fowler on hands/arms. Some small open needle sites w/ increased erythema. No increased warmth.) Lymphatic: Yes: Within Normal Limits - Diagnostic (1) Cocaine dependence, uncomplicated Current Visit: Yes Status: Chronic (2) Cannabis abuse Current Visit: Yes Status: Chronic (3) Nicotine dependence Current Visit: Yes Status: Chronic Qualifiers: Nicotine product type: cigarettes Substance use status: uncomplicated Qualified Code(s): F17.210 - Nicotine dependence, cigarettes, uncomplicated (4) Opioid dependence with withdrawal Current Visit: Yes Status: Acute (5) Eczema Current Visit: Yes Status: Chronic Qualifiers: Eczema type: unspecified Qualified Code(s): L30.9 - Dermatitis, unspecified Cleared for Admission [facility] - Detox or Rehab [facility] Level of Care: Medically Managed Detox Regimen/Protocol: Methadone Claeared for Rehab Admission: No Breathalyzer - Breathalyzer Breathalyzer: 0 POC Urine test - Test device test lot number: [id number] Expiration date: 06/13/20 - Control test control: Yes Urine Drug Screen - Test Device Lot number: [id number] Expiration date: 02/10/21 - Control Is test valid?: Yes - Results Drug screen NEGATIVE: No Urine drug screen results: THC-Marijuana, JOAQUIN-Cocaine, FEN-Fentanyl, MOP-Opiates , OXY-Oxycodone Inpatient Rehab Admission - Rehab Decision to Admit Inpatient rehab admission?: No"
[2019-05-19] MEDS ORDERED: BISMUTH SUBSALICYLATE 524 MG/30 ML UD PO PRN (18:13)
[2019-05-19] MEDS ORDERED: MAG HYDROX/AL HYDROX/SIMETH 30 ML UNIT-DOSE CUP PO PRN (18:13)
[2019-05-19] MEDS ORDERED: MENTHOL/PHENOL 1 EACH UD MM PRN (18:13)
[2019-05-19] MEDS ORDERED: MAGNESIUM CITRATE 300 ML BOTTLE PO PRN (18:13)
[2019-05-19] MEDS ORDERED: IBUPROFEN 400 MG TABLET (FP) PO PRN (18:13)
[2019-05-19] MEDS ORDERED: ACETAMINOPHEN 325 MG TABLET (FP) PO PRN ×2 (18:13)
[2019-05-19] MEDS ORDERED: MAGNESIUM HYDROX 2400MG/30ML ORAL SUSPENSION 30 ML CUP PO PRN (18:13)
[2019-05-19] MEDS ORDERED: cloNIDine HCL 0.1 MG TABLET PO PRN (18:13)
[2019-05-19] MEDS: clonazePAM 0.5 MG TABLET PO PRN (18:39)
[2019-05-19] MEDS ORDERED: METHADONE HCL 10 MG TABLET (FOR DETOX USE ONLY) PO ONE (19:00)
[2019-05-19] MEDS: METHOCARBAMOL 500 MG TABLET PO PRN (22:31)
[2019-05-19] MEDS: THIAMINE HCL 100 MG TABLET (FP) PO SCH (22:31)
[2019-05-19] MEDS: MELATONIN 5 MG TABLETS PO PRN (22:32)
[2019-05-19] MEDS: NICOTINE POLACRILEX 2 MG GUM BUC PRN (22:37)
[2019-05-19] MEDS: BACITRACIN 15 GM TUBE TOPICAL OINTMENT TP SCH (23:19)
[2019-05-20] MEDS ORDERED: METHADONE HCL 5 MG TABLET (FOR DETOX USE ONLY) PO ONE (10:00)
[2019-05-20] MEDS: BACITRACIN 15 GM TUBE TOPICAL OINTMENT TP SCH ×2 (10:30→22:21)
[2019-05-20] MEDS: NICOTINE 14 MG/24 HOURS TOPICAL PATCH TD SCH (10:30)
[2019-05-20] MEDS: PRENATAL VITAMINS W/ FOLIC ACID TABLET (FP) PO SCH (10:30)
[2019-05-20] MEDS: clonazePAM 0.5 MG TABLET PO PRN ×2 (10:31→22:20)
--- NOTE | 2019-05-20 11:09 | PN ---
BHS COWS - Scale Resting Pulse: 0= [place] 80 or Below Sweatin= Chills/Flushing Restless Observation: 1= Difficult to Sit Still Pupil Size: 0= Normal to Room Light Bone or Joint Aches: 1= Mild Discomfort Runny Nose/ Eye Tearin= Nasal Congestion GI Upset > 30mins: 2= Nausea/Diarrhea Tremor Observation of Outstretched Hands: 1= Tremor [place], Not Seen Yawning Observation: 2= >3x During Session Anxiety or Irritability: 2=Irritable/Anxious Goose Flesh Skin: 0=Smooth Skin COWS Score: 11 [facility] Progress Note (SOAP) Subjective: sweats shakes interrupted sleep body aches diarrhea nausea Objective: 05/20/19 11:08 Vital Signs Temperature 98.2 F 05/20/19 09:55 Pulse Rate 66 05/20/19 09:55 Respiratory Rate 18 05/20/19 09:55 Blood Pressure 114/64 05/20/19 09:55 O2 Sat by Pulse Oximetry (%) labs pending aaox3 ambulating no acute distress Assessment: 05/20/19 11:09 withdrawal sx Plan: continue detox increase fluids zofran prn motrin/tylenol prn pepto prn
[2019-05-20] MEDS ORDERED: ONDANSETRON *ODT* 4 MG TABLET SL PRN (11:10)
[2019-05-20 11:16] LABS: ALBUMIN 3.2 g/dl (3.4-5.0); BILIRUBIN,TOTAL 0.2 mg/dL (0.2-1); BLOOD UREA NITROGEN 13.6 mg/dL (7-18); CALCIUM 8.8 mg/dL (8.5-10.1); CREATININE 0.6 mg/dL (0.55-1.3); POTASSIUM 4.6 mmol/L (3.5-5.1); TOT PROT 6.6 g/dl (6.4-8.2)
[2019-05-20 11:51] LABS: HEMATOCRIT 34.9 % (32.4-45.2); HEMOGLOBIN 11.5 GM/dL (10.7-15.3); MCH 27.5 pg (25.7-33.7); MEAN CELL VOLUME 83.3 fl (80-96); MEAN PLT VOLUME 8.8 fl (7.5-11.1); PLATELET COUNT 339 K/MM3 (134-434); RBC 4.19 M/mm3 (3.60-5.2); RDW 14.8 % (11.6-15.6); WHITE BLOOD COUNT 5.4 K/mm3 (4.0-10.0)
[2019-05-20 17:30] LABS: EPI CELLS 1.7 /HPF (0-5/HPF); HYALINE CASTS 2 /lpf (0-8); PH,URINE 5.5 (5.0-8.0); URINE APPEARANCE CLOUDY; URINE BACTERIA 4530.5 /hpf (NEGATIVE); URINE BILIRUBIN NEGATIVE (NEGATIVE); URINE COLOR YELLOW; URINE GLUCOSE (UA) NEGATIVE (NEGATIVE); URINE KETONE NEGATIVE (NEGATIVE); URINE LEUK ESTERASE 1+ (NEGATIVE); URINE NITRITE POSITIVE (NEGATIVE); URINE PROTEIN NEGATIVE (NEGATIVE); URINE RBC 0 /hpf (0-4); URINE UROBILINOGEN 0.2 mg/dL (0.2-1.0); URINE WBC 17 /hpf (0-5)
[2019-05-20] MEDS: THIAMINE HCL 100 MG TABLET (FP) PO SCH (22:20)
[2019-05-20] MEDS: MELATONIN 5 MG TABLETS PO PRN (22:20)
[2019-05-21] MEDS ORDERED: METHADONE HCL 10 MG TABLET (FOR DETOX USE ONLY) PO ONE (10:00)
[2019-05-21] MEDS: PRENATAL VITAMINS W/ FOLIC ACID TABLET (FP) PO SCH (10:49)
[2019-05-21] MEDS: NICOTINE 14 MG/24 HOURS TOPICAL PATCH TD SCH (10:49)
[2019-05-21] MEDS: BACITRACIN 15 GM TUBE TOPICAL OINTMENT TP SCH ×2 (10:49→22:13)
[2019-05-21] MEDS: clonazePAM 0.5 MG TABLET PO PRN ×2 (10:50→22:12)
[2019-05-21] MEDS: NICOTINE POLACRILEX 2 MG GUM BUC PRN (13:33)
--- NOTE | 2019-05-21 14:03 | PN ---
BHS COWS - Scale Resting Pulse: 1= [place] 81-100 Sweatin= Chills/Flushing Restless Observation: 1= Difficult to Sit Still Pupil Size: 0= Normal to Room Light Bone or Joint Aches: 1= Mild Discomfort Runny Nose/ Eye Tearin= Nasal Congestion GI Upset > 30mins: 0= None Tremor Observation of Outstretched Hands: 1= Tremor [place], Not Seen Yawning Observation: 1= 1-2x During Session Anxiety or Irritability: 1=Feels Anxious/Irritable Goose Flesh Skin: 0=Smooth Skin COWS Score: 8 BHS Progress Note (SOAP) Subjective: tired sweats Objective: 05/21/19 14:02 Vital Signs Temperature 98.2 F 05/21/19 13:39 Pulse Rate 77 05/21/19 13:39 Respiratory Rate 18 05/21/19 13:39 Blood Pressure 118/71 05/21/19 13:39 O2 Sat by Pulse Oximetry (%) Laboratory Tests 05/20/19 05/20/19 05/20/19 07:00 07:00 07:00 WBC 5.4 RBC 4.19 Hgb 11.5 Hct 34.9 MCV 83.3 MCH 27.5 MCHC 33.0 RDW 14.8 Plt Count 339 MPV 8.8 Sodium 137 Potassium 4.6 Chloride 104 Carbon Dioxide 30 Anion Gap 3 L BUN 13.6 Creatinine 0.6 Est GFR (CKD-EPI)AfAm 151.01 Est GFR (CKD-EPI)NonAf 130.29 Random Glucose 81 Calcium 8.8 Total Bilirubin 0.2 AST 13 L ALT 19 Alkaline Phosphatase 97 Total Protein 6.6 Albumin 3.2 L Urine Color Urine Appearance Urine pH Ur Specific [place] Urine Protein Urine Glucose (UA) Urine Ketones Urine Blood Urine Nitrite Urine Bilirubin Urine Urobilinogen Ur Leukocyte Esterase Urine WBC (Auto) Urine RBC (Auto) Urine Casts (Auto) U Epithel Cells (Auto) Urine Bacteria (Auto) RPR Titer Nonreactive 05/20/19 14:15 WBC RBC Hgb Hct MCV MCH MCHC RDW Plt Count MPV Sodium Potassium Chloride Carbon Dioxide Anion Gap BUN Creatinine Est GFR (CKD-EPI)AfAm Est GFR (CKD-EPI)NonAf Random Glucose Calcium Total Bilirubin AST ALT Alkaline Phosphatase Total Protein Albumin Urine Color Yellow Urine Appearance Cloudy Urine pH 5.5 D Ur Specific [place] 1.018 Urine Protein Negative Urine Glucose (UA) Negative Urine Ketones Negative Urine Blood Negative Urine Nitrite Positive H Urine Bilirubin Negative Urine Urobilinogen 0.2 Ur Leukocyte Esterase 1+ H Urine WBC (Auto) 17 Urine RBC (Auto) 0 Urine Casts (Auto) 2 U Epithel Cells (Auto) 1.7 Urine Bacteria (Auto) 4530.5 RPR Titer labs noted pt denies of UTI aaox3 lying in bed no acute distress will have u/a repeated. Assessment: 05/21/19 14:03 withdrawal sx Plan: continue detox increase fluids repeat u/a
[2019-05-21] MEDS: THIAMINE HCL 100 MG TABLET (FP) PO SCH (22:12)
[2019-05-21] MEDS: METHOCARBAMOL 500 MG TABLET PO PRN (22:12)
[2019-05-21] MEDS: MELATONIN 5 MG TABLETS PO PRN (22:13)
[2019-05-22] MEDS ORDERED: METHADONE HCL 5 MG TABLET (FOR DETOX USE ONLY) PO ONE (06:00)
--- NOTE | 2019-05-22 08:52 | DS ---
[facility] Detox Discharge Summary Admission Date: 05/19/19 Discharge Date: 05/22/19 - History Present History: Cannabis Dependence, Cocaine Dependence, Opioid Dependence - Physical Exam Results Vital Signs: Vital Signs Temperature 98.1 F 05/22/19 08:32 Pulse Rate 58 L 05/22/19 08:32 Respiratory Rate 16 05/22/19 08:32 Blood Pressure 116/77 05/22/19 08:32 O2 Sat by Pulse Oximetry (%) Pertinent Admission Physical Exam Findings: pt arrived in withdrawals Laboratory Tests 05/20/19 05/20/19 05/20/19 07:00 07:00 07:00 WBC 5.4 RBC 4.19 Hgb 11.5 Hct 34.9 MCV 83.3 MCH 27.5 MCHC 33.0 RDW 14.8 Plt Count 339 MPV 8.8 Sodium 137 Potassium 4.6 Chloride 104 Carbon Dioxide 30 Anion Gap 3 L BUN 13.6 Creatinine 0.6 Est GFR (CKD-EPI)AfAm 151.01 Est GFR (CKD-EPI)NonAf 130.29 Random Glucose 81 Calcium 8.8 Total Bilirubin 0.2 AST 13 L ALT 19 Alkaline Phosphatase 97 Total Protein 6.6 Albumin 3.2 L Urine Color Urine Appearance Urine pH Ur Specific [place] Urine Protein Urine Glucose (UA) Urine Ketones Urine Blood Urine Nitrite Urine Bilirubin Urine Urobilinogen Ur Leukocyte Esterase Urine WBC (Auto) Urine RBC (Auto) Urine Casts (Auto) U Epithel Cells (Auto) Urine Bacteria (Auto) RPR Titer Nonreactive 05/20/19 14:15 WBC RBC Hgb Hct MCV MCH MCHC RDW Plt Count MPV Sodium Potassium Chloride Carbon Dioxide Anion Gap BUN Creatinine Est GFR (CKD-EPI)AfAm Est GFR (CKD-EPI)NonAf Random Glucose Calcium Total Bilirubin AST ALT Alkaline Phosphatase Total Protein Albumin Urine Color Yellow Urine Appearance Cloudy Urine pH 5.5 D Ur Specific [place] 1.018 Urine Protein Negative Urine Glucose (UA) Negative Urine Ketones Negative Urine Blood Negative Urine Nitrite Positive H Urine Bilirubin Negative Urine Urobilinogen 0.2 Ur Leukocyte Esterase 1+ H Urine WBC (Auto) 17 Urine RBC (Auto) 0 Urine Casts (Auto) 2 U Epithel Cells (Auto) 1.7 Urine Bacteria (Auto) 4530.5 RPR Titer today pt is feeling comfortable aaox3 ambulating no acute distress no s/s of withdrawals pt has no c/o UTI. - Treatment Hospital Course: Detox Protocol Followed, Detoxed Safely, Responded well, Discharged Condition Good, Rehab Referral Accepted Patient has Accepted a Rehab Referral to: pt declined; referral provided - Medication Discharge Medications: Ambulatory Orders NK [No Known Home Medication] 12/13/16 - Diagnosis (1) Opioid dependence with withdrawal Current Visit: Yes Status: Chronic (2) Cannabis abuse Current Visit: Yes Status: Chronic (3) Cocaine dependence, uncomplicated Current Visit: Yes Status: Chronic (4) Eczema Current Visit: Yes Status: Chronic Qualifiers: Eczema type: unspecified Qualified Code(s): L30.9 - Dermatitis, unspecified (5) Nicotine dependence Current Visit: Yes Status: Chronic Qualifiers: Nicotine product type: cigarettes Substance use status: uncomplicated Qualified Code(s): F17.210 - Nicotine dependence, cigarettes, uncomplicated (6) Insomnia Current Visit: No Status: Acute (7) Depression (emotion) Current Visit: No Status: Suspected Qualifiers: Depression Type: dysthymia Qualified Code(s): F34.1 - Dysthymic disorder - AMA Did Patient Leave Against Medical Advice: No
[2019-05-22 10:12] VITALS: BP 127/88; PULSE 90; TEMP 96.3
== END 2019-05-22 09:40 | disposition home or self-care (01) | DRG 773 ==
LOC: YASAS 12:27 → Y6N 17:35
PROVIDERS: ADMIT Surgery; ATTEND Surgery
PROC: HZ2ZZZZ Detoxification Services for Substance Abuse Treatment (ICD-10-PCS; principal; 2019-05-19)
DX: F11.23 Opioid dependence with withdrawal (principal); F14.20 Cocaine dependence, uncomplicated; F12.10 Cannabis abuse, uncomplicated; F17.210 Nicotine dependence, cigarettes, uncomplicated; F34.1 Dysthymic disorder; G47.00 Insomnia, unspecified; L30.9 Dermatitis, unspecified
CPT/HCPCS: 36415; 80053; 81003; 81025; 85027; 86593; J0735

== ENCOUNTER 2019-09-05 00:18 | Inpatient (IN) | payer OTHER ==
[2019-09-05 01:12] VITALS: BMI 22.4
--- NOTE | 2019-09-05 02:15 | HP ---
COWS - Scale Resting Pulse: 2= NE 101-120 Sweatin= Chills/Flushing Restless Observation: 5= Unable to Sit Still Pupil Size: 1= Pupils >than Normal Bone or Joint Aches: 4=Acute Joint/Muscle Pain Runny Nose/ Eye Tearin= Runny Nose/Eyes GI Upset > 30mins: 1= Stomach Cramp Tremor Observation: 1= Tremor Clayton, Not Seen Yawning Observation: 1= 1-2x During Session Anxiety or Irritability: 2=Irritable/Anxious Goose Flesh Skin: 0=Smooth Skin COWS Score: 20 CIWA Score Nausea/Vomitin-No Nausea/No Vomiting Muscle Tremors: 1-None Visible, but Clayton Anxiety: 4-Mod. Anxious/Guarded Agitation: 4-Moderately Restless Paroxysmal Sweats: 3 Orientation: 0-Oriented Tacttile Disturbances: 0-None Auditory Disturbances: 0-None Visual Disturbances: 0-None Headache: 3-Moderate CIWA-Ar Total Score: 15 - Admission Criteria [facility]ASAS Guidelines: Admission for Medically Managed Detox: Requires at least one of the followin. CIWA greater than 12 2. Seizures within the past 24 hours 3. Delirium tremens within the past 24 hours 4. Hallucinations within the past 24 hours 5. Acute intervention needed for co occurring medical disorder 6. Acute intervention needed for co occurring psychiatric disorder 7. Severe withdrawal that cannot be handled at a lower level of care (continued vomiting, continued diarrhea, abnormal vital signs) requiring intravenous medication and/or fluids 8. Patient presents the following: CIWA greater than 12 Admission Criteria Met: Admission criteria met Admitting History and Physical - Past Medical History ...LMP: 08/14/18 (Unsure exact date) - Smoking History Smoking history: Current every day smoker Have you smoked in the past 12 months: Yes Aproximately how many cigarettes per day: 10 - Alcohol/Substance Use Hx Alcohol Use: No Admission ROS BHS - HPI Chief Complaint: seeking heroin/xanax detox Allergies/Adverse Reactions: Allergies Allergy/AdvReac Type Severity Reaction Status Date / Time No Known Allergies Allergy Unverified 09/05/19 01:03 History of Present Illness: HERE FOR HEROIN/ Xanax detox. client is self referred LAST HERE 05/2019 RELAPSED SHORTLY AFTER DC REPORTS DAILY USE OF HEROIN LAST USED OVER 12 HOURS AGO XANAX 5 X A DAY. LASTUSE 2 DAYS AGO. 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 Exam Limitations: No Limitations - Ebola screening Have you traveled outside of the country in the last 21 days: No (N) Have you had contact with anyone from an Ebola affected area: No Do you have a fever: No - Review of Systems Constitutional: Chills, Loss of Appetite, Malaise, Night Sweats, Changes in sleep EENT: reports: Blurred Vision (GLASSES), Other (WATERY EYES) Respiratory: reports: No Symptoms reported Cardiac: reports: No Symptoms Reported GI: reports: Poor Appetite, Abdominal cramping : reports: No Symptoms Reported Musculoskeletal: reports: Back Pain Integumentary: reports: Other (ABCESS TO RLE DRAINING) Neuro: reports: Headache Endocrine: reports: No Symptoms Reported Hematology: reports: No Symptoms Reported Psychiatric: reports: Orientated x3, Anxious Other Systems: Reviewed and Negative Patient History - Patient Medical History Hx Anemia: No Hx Asthma: No Hx Chronic Obstructive Pulmonary Disease (COPD): No Hx Cancer: No Hx Cardiac Disorders: No Hx Congestive Heart Failure: No Hx Hypertension: No Hx Hypercholesterolemia: No Hx Pacemaker: No HX Cerebrovascular Accident: No Hx Seizures: No Hx Dementia: No Hx Diabetes: No Hx Gastrointestinal Disorders: No Hx Liver Disease: No Hx Genitourinary Disorders: No Hx Sexually Transmitted Disorders: No Hx Renal Disease (ESRD): No Hx Thyroid Disease: No Hx Human Immunodeficiency Virus (HIV): No Hx Hepatitis C: No Hx Depression: No Hx Suicide Attempt: No Hx Bipolar Disorder: No Hx Schizophrenia: No Other Medical History: DENIES - Patient Surgical History Past Surgical History: No Hx Neurologic Surgery: No Hx Cataract Extraction: No Hx Cardiac Surgery: No Hx Lung Surgery: No Hx Breast Surgery: No Hx Breast Biopsy: No Hx Abdominal Surgery: No Hx Appendectomy: No Hx Cholecystectomy: No Hx Genitourinary Surgery: No Hx Section: No Hx Orthopedic Surgery: No Anesthesia Reaction: No - PPD History Previous Implant?: Yes Documented Results: Negative w/proof Implanted On Prior R Admission?: Yes Date: 09/04/17 Results: NEGATIVE PPD to be Administered?: Yes - Reproductive History Patient is a Female of Child Bearing Age (11 -55 yrs old): Yes Last Menstrual Period: 08/14/18 (Unsure exact date) LMP comment: IRREG Patient : [place] [facility] - Smoking Cessation Smoking history: Current every day smoker Have you smoked in the past 12 months: Yes Aproximately how many cigarettes per day: 30 Cigars Per Day: 0 Hx Chewing Tobacco Use: No Initiated information on smoking cessation: Yes 'Breaking Loose' booklet given: 09/05/19 - Substance & Tx. History Hx Alcohol Use: Yes Hx Substance Use: Yes Substance Use Type: Cocaine, Heroin, Marijuana, Tranquilizers (XANAX) Hx Substance Use Treatment: Yes ([facility]) - Substances abused Heroin Substance route: Injection Frequency: Daily Amount used: 2 bundle Age of first use: 20 Date of last use: 09/04/19 Alprazolam (Xanax) Substance route: Oral Frequency: 1-2 times per week Amount used: 2 or 3 of 2 mg bars Age of first use: 20 Date of last use: 09/01/19 Crack Substance route: Smoking Frequency: Daily Amount used: 1 gm Age of first use: 20 Date of last use: 09/04/19 Admission Physical Exam S - Vital Signs Vital Signs: Vital Signs - 24 hr 09/05/19 09/05/19 01:08 01:36 Temperature 97.7 F 97.7 F Pulse Rate 112 H 112 H Respiratory 18 18 Rate Blood Pressure 121/80 121/80 - Physical General Appearance: Yes: Mild Distress, Anxious HEENTM: Yes: EOMI, Normocephalic, Normal Voice, ALBERTO, Pharynx Normal, Rhinorrhea , Other (tearing) Respiratory: Yes: Chest Non-Tender, Lungs Clear, Normal Breath Sounds, No Respiratory Distress, No Accessory Muscle Use Neck: Yes: No masses,lesions,Nodules, Supple, Trachea in good position Breast: Yes: Breast Exam Deferred Cardiology: Yes: Regular Rhythm, Regular Rate, S1, S2 Abdominal: Yes: Non Tender, Flat, Soft, Increased Bowel Sounds Genitourinary: Yes: Within Normal Limits Back: Yes: Normal Inspection Musculoskeletal: Yes: full range of Motion, Gait Steady Extremities: Yes: Normal Capillary Refill, Normal Range of Motion, Non-Tender Neurological: Yes: Fully Oriented, Alert, Motor Strength 5/5 Integumentary: Yes: Dry, Warm, Erythema (abcess noted to rle draining prulent dc with pressure to indurated area), Other (resolving areas of folliculitis of both legs) Lymphatic: Yes: Within Normal Limits - Diagnostic (1) Cannabis dependence, uncomplicated Current Visit: Yes Status: Acute (2) Sedative, hypnotic or anxiolytic dependence with withdrawal, uncomplicated Current Visit: Yes Status: Acute (3) Cutaneous abscess Current Visit: Yes Status: Acute Qualifiers: Site of cutaneous abscess: extremity Site of cutaneous abscess of extremity : lower extremity Laterality: right Qualified Code(s): L02.415 - Cutaneous abscess of right lower limb (4) IVDU (intravenous drug user) Current Visit: Yes Status: Acute (5) Track sanz due to intravenous drug abuse Current Visit: Yes Status: Acute (6) Cocaine dependence, uncomplicated Current Visit: Yes Status: Acute (7) Eczema Current Visit: Yes Status: Chronic Qualifiers: Eczema type: unspecified Qualified Code(s): L30.9 - Dermatitis, unspecified (8) Opioid dependence with withdrawal Current Visit: Yes Status: Acute (9) Folliculitis Current Visit: Yes Status: Acute Cleared for Admission [facility] - Detox or Rehab [facility] Level of Care: Medically Managed Detox Regimen/Protocol: Methadone/Valium Claeared for Rehab Admission: No Breathalyzer - Breathalyzer Breathalyzer: 0 POC Urine test - Test device test lot number: [id number] Expiration date: 06/13/20 - Control test control: Yes Urine Drug Screen - Test Device Lot number: [id number] Expiration date: 05/13/21 - Control Is test valid?: Yes - Results Drug screen NEGATIVE: No Urine drug screen results: THC-Marijuana, JOAQUIN-Cocaine, MET-Methamphetamine, MOP- Opiates, BZO-Benzodiazepines Inpatient Rehab Admission - Rehab Decision to Admit Inpatient rehab admission?: No
[2019-09-05] MEDS ORDERED: cloNIDine HCL 0.1 MG TABLET PO PRN (02:22)
[2019-09-05] MEDS ORDERED: ACETAMINOPHEN 325 MG TABLET (FP) PO PRN ×2 (02:22)
[2019-09-05] MEDS ORDERED: P-EPHED 60MG/TRIPROLIDI 2.5MG TABLET PO PRN (02:22)
[2019-09-05] MEDS ORDERED: DICYCLOMINE HCL 10 MG CAPSULE PO PRN (02:22)
[2019-09-05] MEDS ORDERED: METHOCARBAMOL 500 MG TABLET PO PRN (02:22)
[2019-09-05] MEDS ORDERED: METHADONE HCL 10 MG TABLET (FOR DETOX USE ONLY) PO ONE (02:22)
[2019-09-05] MEDS ORDERED: hydrOXYzine PAMOATE 25 MG CAPSULE (FP) PO PRN (02:22)
[2019-09-05] MEDS ORDERED: MELATONIN 5 MG TABLETS PO PRN (02:22)
[2019-09-05] MEDS ORDERED: guaiFENesin 200 MG/10 ML 10 ML UNIT-DOSE CUPS PO PRN (02:22)
[2019-09-05] MEDS ORDERED: MAGNESIUM HYDROX 2400MG/30ML ORAL SUSPENSION 30 ML CUP PO PRN (02:22)
[2019-09-05] MEDS ORDERED: NICOTINE POLACRILEX 2 MG GUM BUC PRN (02:22)
[2019-09-05] MEDS ORDERED: MAG HYDROX/AL HYDROX/SIMETH 30 ML UNIT-DOSE CUP PO PRN (02:22)
[2019-09-05] MEDS ORDERED: MAGNESIUM CITRATE 300 ML BOTTLE PO PRN (02:22)
[2019-09-05] MEDS ORDERED: BISMUTH SUBSALICYLATE 524 MG/30 ML UD PO PRN (02:22)
[2019-09-05] MEDS ORDERED: NALOXONE HCL 0.4 MG/ML VIAL IM PRN (02:22)
[2019-09-05] MEDS ORDERED: MENTHOL/PHENOL 1 EACH UD MM PRN (02:22)
[2019-09-05] MEDS ORDERED: IBUPROFEN 400 MG TABLET (FP) PO PRN (02:22)
[2019-09-05] MEDS ORDERED: ONDANSETRON *ODT* 4 MG TABLET SL PRN (02:22)
[2019-09-05] MEDS ORDERED: diazePAM 5 MG TABLET PO PRN (02:22)
[2019-09-05] MEDS: diazePAM 5 MG TABLET PO SCH ×2 (06:03→14:13)
[2019-09-05] MEDS: CEPHALEXIN MONOHYDRATE 500 MG CAPSULE (UD) PO SCH ×2 (06:03→12:49)
[2019-09-05] MEDS ORDERED: PRENATAL VITAMINS W/ FOLIC ACID TABLET (FP) PO SCH (10:00)
[2019-09-05] MEDS ORDERED: BACITRACIN 15 GM TUBE TOPICAL OINTMENT TP SCH (10:00)
[2019-09-05] MEDS ORDERED: NICOTINE 21 MG/24 HOURS TOPICAL PATCH TD SCH (10:00)
[2019-09-05] MEDS ORDERED: METHADONE HCL 10 MG TABLET PO ONE (10:00)
[2019-09-05 10:55] LABS: HEMATOCRIT 32.9 % (32.4-45.2); HEMOGLOBIN 10.8 GM/dL (10.7-15.3); MCH 25.8 pg (25.7-33.7); MCHC 32.8 g/dl (32.0-36.0); MEAN CELL VOLUME 78.5 fl (80-96); MEAN PLT VOLUME 8.3 fl (7.5-11.1); PLATELET COUNT 352 K/MM3 (134-434); RBC 4.19 M/mm3 (3.60-5.2); RDW 14.9 % (11.6-15.6); WHITE BLOOD COUNT 14.5 K/mm3 (4.0-10.0)
[2019-09-05 11:02] LABS: ALBUMIN 3.5 g/dl (3.4-5.0); BILIRUBIN,TOTAL 0.3 mg/dL (0.2-1); BLOOD UREA NITROGEN 11.1 mg/dL (7-18); CALCIUM 8.7 mg/dL (8.5-10.1); CREATININE 0.9 mg/dL (0.55-1.3); POTASSIUM 3.4 mmol/L (3.5-5.1); TOT PROT 6.7 g/dl (6.4-8.2)
[2019-09-05] MEDS ORDERED: POTASSIUM CHLORIDE TABS 20 MEQ TABLET.ER (FP) PO ONE (11:05)
[2019-09-05 14:04] VITALS: BP 112/73; PULSE 86; TEMP 96.8
--- NOTE | 2019-09-05 17:16 | PN ---
S Progress Note Note: informed by nurse that patient did not want to continue treatment,did not want to wait,signed release ama, prescription for keklex 500 mgs po q 6nrs for 7 days sent to her pharmacy
--- NOTE | 2019-09-05 17:16 | PN ---
S CIWA - CIWA Score Nausea/Vomitin-No Nausea/No Vomiting Muscle Tremors: 2 Anxiety: 3 Agitation: 2 Paroxysmal Sweats: No Perspiration Orientation: 0-Oriented Tacttile Disturbances: 1-Very Mild Itch/Numbness Auditory Disturbances: 0-None Visual Disturbances: 0-None Headache: 2-Mild CIWA-Ar Total Score: 10 BHS COWS - Scale Resting Pulse: 0= ME 80 or Below Sweatin= No chills or Flushing Restless Observation: 1= Difficult to Sit Still Pupil Size: 0= Normal to Room Light Bone or Joint Aches: 0= None Runny Nose/ Eye Tearin= None GI Upset > 30mins: 0= None Tremor Observation of Outstretched Hands: 2= Slight Tremor Visible Yawning Observation: 1= 1-2x During Session Anxiety or Irritability: 2=Irritable/Anxious Goose Flesh Skin: 0=Smooth Skin COWS Score: 6 BHS Progress Note (SOAP) Subjective: Anxious, Tremors. Objective: PATIENT A & O X 3, OBSERVED AMBULATING ON DETOX UNIT UNASSISTED. IN NO ACUTE DISTRESS. PATIENT AFEBRILE. 09/05/19 17:17 Vital Signs Temperature 96.8 F L 09/05/19 14:03 Pulse Rate 86 09/05/19 14:03 Respiratory Rate 18 09/05/19 14:03 Blood Pressure 112/73 09/05/19 14:03 O2 Sat by Pulse Oximetry (%) Laboratory Tests 09/05/19 09/05/19 09/05/19 07:40 07:40 07:40 WBC 14.5 H RBC 4.19 Hgb 10.8 Hct 32.9 MCV 78.5 L MCH 25.8 MCHC 32.8 RDW 14.9 Plt Count 352 MPV 8.3 Sodium 137 Potassium 3.4 L Chloride 105 Carbon Dioxide 24 Anion Gap 8 BUN 11.1 Creatinine 0.9 Est GFR (CKD-EPI)AfAm 105.93 Est GFR (CKD-EPI)NonAf 91.40 Random Glucose 99 Calcium 8.7 Total Bilirubin 0.3 AST 10 L ALT 12 L Alkaline Phosphatase 87 Total Protein 6.7 Albumin 3.5 RPR Titer Nonreactive LABS NOTED. Assessment: 09/05/19 17:18 WITHDRAWAL SYMPTOMS. LEUKOCYTOSIS. HYPOKALEMIA. 09/05/19 17:19 Plan: CONTINUE DETOX. INCREASE DAILY ORAL WATER INTAKE. UA ORDERED TO R/O UTI. REPEAT CBC ORDERED FOR TOMORROW AM DUE TO ELEVATED WBC LEVEL NOTED ON DETOX ADMISSION LABORATORY ASSESSMENT. PATIENT HAD WOUND ON RIGHT LOWER LEG, WHICH SHE BELIEVES WAS DUE TO SOME TYPE OF "BITE," ALTHOUGH SHE IS UNCERTAIN TO HOW SHE GOT THE BITE INITIALLY. WOUND CARE CURRENTLY BEING DONE ON WOUND. ORAL ANTIBIOTIC PREVIOUSLY ORDERED. K-DUR, 20 MEQ ORALLY ORDERED FOR LOW K LEVEL NOTED ON DETOX ADMISSION LABORATORY ASSESSMENT. RE-CHECK K LEVEL TOMORROW AM. PATIENT REPORTS THAT, THUS FAR, SHE IS TOLERATING CURRENT WITHDRAWAL / DETOX SYMPTOMS WELL AND THAT SYMPTOMS HAVE SUBSIDED CONSIDERABLY SINCE TIME OF ADMISSION YESTERDAY. AT PATIENT'S REQUEST, CURRENT DETOX MEDICATION REGIMEN MODIFIED SO THAT PATIENT MAY BE DISCHARGED ON 09/07/2019.
--- NOTE | 2019-09-05 17:26 | DS ---
[facility] Detox Discharge Summary Admission Date: 09/05/19 Discharge Date: 09/05/19 - History Present History: Cocaine Dependence, Opioid Dependence, Sedative Dependence Additional Comments: patient signed release ama Pertinent Past History: ivdu - Physical Exam Results Vital Signs: Vital Signs Temperature 96.8 F L 09/05/19 14:03 Pulse Rate 86 09/05/19 14:03 Respiratory Rate 18 09/05/19 14:03 Blood Pressure 112/73 09/05/19 14:03 O2 Sat by Pulse Oximetry (%) Pertinent Admission Physical Exam Findings: Vital Signs Temperature 96.8 F L 09/05/19 14:03 Pulse Rate 86 09/05/19 14:03 Respiratory Rate 18 09/05/19 14:03 Blood Pressure 112/73 09/05/19 14:03 O2 Sat by Pulse Oximetry (%) Laboratory Last Values WBC 14.5 K/mm3 (4.0-10.0) H 09/05/19 07:40 RBC 4.19 M/mm3 (3.60-5.2) 09/05/19 07:40 Hgb 10.8 GM/dL (10.7-15.3) 09/05/19 07:40 Hct 32.9 % (32.4-45.2) 09/05/19 07:40 MCV 78.5 fl (80-96) L 09/05/19 07:40 MCH 25.8 pg (25.7-33.7) 09/05/19 07:40 MCHC 32.8 g/dl (32.0-36.0) 09/05/19 07:40 RDW 14.9 % (11.6-15.6) 09/05/19 07:40 Plt Count 352 K/MM3 (134-434) 09/05/19 07:40 MPV 8.3 fl (7.5-11.1) 09/05/19 07:40 Sodium 137 mmol/L (136-145) 09/05/19 07:40 Potassium 3.4 mmol/L (3.5-5.1) L 09/05/19 07:40 Chloride 105 mmol/L (98-107) 09/05/19 07:40 Carbon Dioxide 24 mmol/L (21-32) 09/05/19 07:40 Anion Gap 8 MMOL/L (8-16) 09/05/19 07:40 BUN 11.1 mg/dL (7-18) 09/05/19 07:40 Creatinine 0.9 mg/dL (0.55-1.3) 09/05/19 07:40 Est GFR (CKD-EPI)AfAm 105.93 09/05/19 07:40 Est GFR (CKD-EPI)NonAf 91.40 09/05/19 07:40 Random Glucose 99 mg/dL (74-106) 09/05/19 07:40 Calcium 8.7 mg/dL (8.5-10.1) 09/05/19 07:40 Total Bilirubin 0.3 mg/dL (0.2-1) 09/05/19 07:40 AST 10 U/L (15-37) L 09/05/19 07:40 ALT 12 U/L (13-61) L 09/05/19 07:40 Alkaline Phosphatase 87 U/L (45-117) 09/05/19 07:40 Total Protein 6.7 g/dl (6.4-8.2) 09/05/19 07:40 Albumin 3.5 g/dl (3.4-5.0) 09/05/19 07:40 RPR Titer Nonreactive (NONREACTIVE) 09/05/19 07:40 - Medication Discharge Medications: Ambulatory Orders Cephalexin Monohydrate [Keflex -] 500 mg PO Q6H 7 Days #28 capsule 09/05/19 - Diagnosis (1) Cocaine dependence, uncomplicated Current Visit: Yes Status: Acute (2) Cutaneous abscess Current Visit: Yes Status: Acute Qualifiers: Site of cutaneous abscess: extremity Site of cutaneous abscess of extremity : lower extremity Laterality: right Qualified Code(s): L02.415 - Cutaneous abscess of right lower limb (3) IVDU (intravenous drug user) Current Visit: Yes Status: Acute (4) Opioid dependence with withdrawal Current Visit: Yes Status: Acute (5) Sedative, hypnotic or anxiolytic dependence with withdrawal, uncomplicated Current Visit: Yes Status: Acute (6) Track sanz due to intravenous drug abuse Current Visit: Yes Status: Acute - AMA Did Patient Leave Against Medical Advice: Yes
[2019-09-05] MEDS ORDERED: POTASSIUM CHLORIDE TABS 20 MEQ TABLET.ER (FP) PO SCH (18:00)
[2019-09-05] MEDS ORDERED: THIAMINE HCL 100 MG TABLET (FP) PO SCH (22:00)
[2019-09-06] MEDS ORDERED: diazePAM 5 MG TABLET PO SCH (06:00)
[2019-09-06] MEDS ORDERED: METHADONE (DETOX) 20 MG, METHADONE (DETOX) 5 MG PO ONE (10:00)
[2019-09-06] MEDS ORDERED: METHADONE HCL 10 MG TABLET (FOR DETOX USE ONLY) PO ONE (10:00)
[2019-09-07] MEDS ORDERED: diazePAM 5 MG TABLET PO ONE (06:00)
[2019-09-07] MEDS ORDERED: METHADONE HCL 5 MG TABLET (FOR DETOX USE ONLY) PO ONE (06:00)
[2019-09-07] MEDS ORDERED: METHADONE HCL 10 MG TABLET (FOR DETOX USE ONLY) PO ONE (10:00)
[2019-09-08] MEDS ORDERED: METHADONE (DETOX) 10 MG, METHADONE (DETOX) 5 MG PO ONE (10:00)
[2019-09-09] MEDS ORDERED: METHADONE HCL 10 MG TABLET (FOR DETOX USE ONLY) PO ONE (10:00)
[2019-09-10] MEDS ORDERED: METHADONE HCL 5 MG TABLET (FOR DETOX USE ONLY) PO ONE (06:00)
== END 2019-09-05 17:03 | disposition home or self-care (01) | DRG 773 ==
LOC: YASAS 00:18 → Y6N 02:00
PROVIDERS: ADMIT Neuromusculoskeletal Medicine & OMM; ATTEND Allergy & Immunology
PROC: HZ2ZZZZ Detoxification Services for Substance Abuse Treatment (ICD-10-PCS; principal; 2019-09-05)
DX: F11.23 Opioid dependence with withdrawal (principal); F13.230 Sedative, hypnotic or anxiolytic dependence with withdrawal, uncomplicated; F14.20 Cocaine dependence, uncomplicated; F12.20 Cannabis dependence, uncomplicated; F17.210 Nicotine dependence, cigarettes, uncomplicated; L02.415 Cutaneous abscess of right lower limb; L30.9 Dermatitis, unspecified; L73.9 Follicular disorder, unspecified; E87.6 Hypokalemia; D72.829 Elevated white blood cell count, unspecified
CPT/HCPCS: 36415; 80053; 81025; 85027; 86593